=== PATIENT | female | born 1995 ===

== ENCOUNTER 2018-07-11 21:51 | Emergency (ER) | payer OTHER ==
[2018-07-11 22:16] VITALS: BP 112/70
[2018-07-11] MEDS ORDERED: Ondansetron ODT TAB* 4 MG PO ONE ×2 (23:07→23:34)
--- NOTE | 2018-07-11 23:14 | UC ---
Abdominal Pain Female HPI - HPI Summary HPI Summary: SUDDEN ONSET OF NAUSEA AND VOMITING AT MIDNIGHT. PATIENT ADMITS SHE HAD 4-5 ALCOHOLIC BEVERAGES IN THE SPAN OF ABOUT 4 HOURS PRIOR TO ONSET OF SYMPTOMS. DENIES BEING HUNG OVER TODAY. DOES NOT THINK HER SYMPTOMS ARE DUE TO ALCOHOL INTAKE SHE HAS NOT IMPROVED AT ALL OVER THE COURSE OF THE DAY. REPORTS SHE IS UNABLE TO KEEP ANYTHING DOWN BY MOUTH. NO ABDOMINAL PAIN OR FEVER. - History of Current Complaint Chief Complaint: UCGI Stated Complaint: VOMITING Time Seen by Provider: 07/11/18 22:47 Hx Obtained From: Patient Hx Last Menstrual Period: 06/25/18 Onset/Duration: Sudden Onset, Lasting Hours, Still Present Timing: Constant Severity Initially: Moderate Severity Currently: Moderate Pain Intensity: 0 Pain Scale Used: 0-10 Numeric Character: Not Applicable Aggravating Factor(s): Food Alleviating Factor(s): Nothing Associated Signs and Symptoms: Positive: Decreased Appetite, Nausea, Vomiting. Negative: Fever, Back Pain, Urinary Symptoms, Diarrhea Allergies/Adverse Reactions: Allergies Allergy/AdvReac Type Severity Reaction Status Date / Time No Known Allergies Allergy Verified 07/11/18 22:16 Home Medications: Home Medications Levothyroxine TAB* [Synthroid 100 MCG TAB*] 1 tab PO DAILY 07/11/18 [History Confirmed 07/11/18] PMH/Surg Hx/FS Hx/Imm Hx Previously Healthy: Yes - Surgical History Surgical History: None - Family History Known Family History: Negative: Hypertension - Social History Alcohol Use: Occasionally Substance Use Type: None Smoking Status (MU): Never Smoked Tobacco Review of Systems Constitutional: Negative Respiratory: Negative Cardiovascular: Negative Gastrointestinal: Vomiting, Nausea Genitourinary: Negative All Other Systems Reviewed And Are Negative: Yes Physical Exam Triage Information Reviewed: Yes Appearance: Well-Appearing, No Pain Distress, Well-Nourished Vital Signs: Initial Vital Signs Temp 98.1 F 07/11/18 22:13 Pulse 77 07/11/18 22:13 Resp 18 07/11/18 22:13 BP 112/70 07/11/18 22:13 Pulse Ox 99 07/11/18 22:13 Vital Signs Reviewed: Yes Eyes: Positive: Conjunctiva Clear ENT: Positive: Hearing grossly normal Neck: Positive: Supple Respiratory Exam: Normal Cardiovascular Exam: Normal Abdomen Description: Positive: Nontender, Soft. Negative: CVA Tenderness (R), CVA Tenderness (L), Distended, Guarding Bowel Sounds: Positive: Present Musculoskeletal: Positive: No Edema Neurological: Positive: Alert Psychological: Positive: Age Appropriate Behavior Skin: Negative: rashes Re-Evaluation - Re-Evaluation First Eval Re-Evaluation Time: 23:30 - FEELS BETTER AND TOLERATING PO WATER AFTER 4MG ZOFRAN Change: Improved Abd Pain Female Course/Dx - Differential Dx/Diagnosis Provider Diagnoses: ACUTE N/V Discharge - Sign-Out/Discharge Documenting (check all that apply): Patient Departure All imaging exams completed and their final reports reviewed: No Studies - Discharge Plan Condition: Stable Disposition: HOME Prescriptions: Ondansetron ODT TAB* [Zofran Odt TAB*] 4 mg PO Q6H PRN #20 tab.odt PRN Reason: Nausea/Vomiting Patient Education Materials: Acute Nausea and Vomiting (ED) Referrals: [facility] [Provider Group] - If Needed Additional Instructions: YOU MAY HAVE PICKED UP A STOMACH BUG AND YOUR SYMPTOMS SHOULD RESOLVE OVER THE NEXT FEW DAYS. BE SURE TO STAY WELL-HYDRATED. YOUR URINE TEST TODAY WAS NEGATIVE FOR INFECTION BUT DOES CONFIRM A RELATIVE STATE OF DEHYDRATION. SMALL FREQUENT SIPS OF FLUIDS. ZOFRAN WILL HELP WITH NAUSEA. FOLLOW-UP WITH ON LICENSE OF [facility] IF YOU'RE NOT IMPROVING EXPECTED OVER THE NEXT FEW DAYS. AVOID DAIRY FOOD, GREASY FOOD, SPICY FOOD, CAFFEINE UNTIL YOU ARE FEELING BETTER. - Billing Disposition and Condition Condition: STABLE Disposition: Home
[2018-07-11] MEDS ORDERED: Ondansetron ODT TAB* 4 MG ONE (23:35)
== END 2018-07-11 23:45 | disposition home or self-care (01) ==
LOC: UCEAST 21:51
DX: R11.2 Nausea with vomiting, unspecified (principal); Z72.89 Other problems related to lifestyle
CPT/HCPCS: 81003; 99203; A9270-GY; G0463